=== PATIENT | male | born 1945 | race Caucasian/White ===

== ENCOUNTER → 2018-03-13 | Outpatient (CLI) | payer MEDICARE, OTHER ==
[2018-03-13 13:59] LABS: ALBUMIN 4.3 g/dL (3.5-5.0); CALCIUM 8.9 mg/dL (8.4-10.2); POTASSIUM 4.4 mmol/L (3.6-5.0); TOTAL BILIRUBIN 0.6 mg/dL (0.2-1.3); TOTAL PROTEIN 7.1 g/dL (6.3-8.2)
[2018-03-13 14:18] LABS: BASO # 0.1 (0.02-0.10); HEMATOCRIT 41.5 % (42.0-52.0); HEMOGLOBIN 14.1 g/dL (13.5-18.0); LYMPH# 1.4 (1.50-4.00); MEAN CELL VOLUME 99 fl (78-100); MEAN CORPUSCULAR HEMOGLOBIN 34 pg (27-31); MEAN CORPUSCULAR HGB CONC 34 g/dL (33-37); MEAN PLATELET VOLUME 9.6 fl (7.4-10.4); MONO # 1.1 (0.20-0.80); NEU # 7.2 (1.40-6.50); PLATELET COUNT 287 K/mm3 (130-400); RED CELL DISTRIBUTION WIDTH 12.5 % (11.5-14.5); WHITE BLOOD COUNT 10.5 K/mm3 (4.8-10.8)
[2018-03-13 14:23] LABS: EOS # 0.7 (0.04-0.40); EOS % 6.6 % (0.0-4.0)
== END ==
LOC: RAD 12:45
PROVIDERS: Family Medicine
DX: K57.30 Diverticulosis of large intestine without perforation or abscess without bleeding (principal); R18.8 Other ascites
CPT/HCPCS: Q9967

== ENCOUNTER → 2018-03-14 | Outpatient (CLI) | payer MEDICARE, OTHER | LOC: RAD 12:48 | DX: M79.661 Pain in right lower leg (principal); R22.41 Localized swelling, mass and lump, right lower limb ==

== ENCOUNTER → 2018-06-07 | Outpatient (CLI) | payer MEDICARE, OTHER | LOC: RAD 06:53 | DX: R10.11 Right upper quadrant pain (principal) ==

== ENCOUNTER → 2018-12-13 | Outpatient (CLI) | payer MEDICARE, OTHER ==
[2018-12-13 16:22] LABS: HEMATOCRIT 40.1 % (42.0-52.0); HEMOGLOBIN 13.5 g/dL (13.5-18.0); MEAN CELL VOLUME 96 fl (78-100); MEAN CORPUSCULAR HEMOGLOBIN 32 pg (27-31); MEAN CORPUSCULAR HGB CONC 34 g/dL (33-37); MEAN PLATELET VOLUME 8.2 fl (7.4-10.4); PLATELET COUNT 262 K/mm3 (130-400); RED BLOOD COUNT 4.19 M/mm3 (4.20-5.60); RED CELL DISTRIBUTION WIDTH 12.3 % (11.5-14.5); WHITE BLOOD COUNT 10.5 K/mm3 (4.8-10.8)
[2018-12-13 16:36] LABS: POTASSIUM 4.4 mmol/L (3.5-5.1)
[2018-12-13 16:37] LABS: CALCIUM 9.2 mg/dL (8.3-10.5)
[2018-12-13 16:59] LABS: LYMPHOCYTE 19 % (20-51); MONOCYTE 10 % (3-10); NEUTROPHILS 62 % (42-75)
== END ==
LOC: LAB 16:13
PROVIDERS: Nurse Practitioner Family
DX: J42 Unspecified chronic bronchitis (principal); R09.02 Hypoxemia

== ENCOUNTER 2019-11-12 15:32 | Emergency (ER) | payer MEDICARE, OTHER ==
[~2019-11-12] VITALS: Ht 172.7 cm; Wt 90.9 kg
[2019-11-12 16:05] LABS: HEMATOCRIT 43.9 % (42.0-52.0); HEMOGLOBIN 14.9 g/dL (13.5-18.0); MEAN CELL VOLUME 97 fl (78-100); MEAN CORPUSCULAR HEMOGLOBIN 33 pg (27-31); MEAN CORPUSCULAR HGB CONC 34 g/dL (33-37); MEAN PLATELET VOLUME 9.2 fl (7.4-10.4); PLATELET COUNT 270 K/mm3 (130-400); RED BLOOD COUNT 4.53 M/mm3 (4.20-5.60); RED CELL DISTRIBUTION WIDTH 12.8 % (11.5-14.5)
[2019-11-12 16:15] LABS: ALBUMIN 4.4 g/dL (3.4-4.8); POTASSIUM 4.5 mmol/L (3.5-5.1)
[2019-11-12 16:16] LABS: CALCIUM 9.2 mg/dL (8.3-10.5)
[2019-11-12 16:17] LABS: TOTAL PROTEIN 7.2 g/dL (6.2-8.1)
[2019-11-12 16:19] LABS: TOTAL BILIRUBIN 0.4 mg/dL (0.2-1.2)
[2019-11-12 16:21] LABS: LYMPHOCYTE 10 % (20-51); MONOCYTE 7 % (3-10); NEUTROPHILS 80 % (42-75)
[2019-11-12] MEDS ORDERED: PROAIR HFA0.09 MG/AC (17:03)
[2019-11-12] MEDS ORDERED: ATORVASTATIN CA40 MG PO (17:04)
[2019-11-12] MEDS ORDERED: IPRATROPIUM BROM3 M1 INH (17:04)
[2019-11-12] MEDS ORDERED: SYMBICORT1 AE2 INH (17:05)
[2019-11-12] MEDS ORDERED: VITAMIN D-40010 MCG PO (17:06)
[2019-11-12] MEDS ORDERED: TAGAMET HB200 M1 (17:17)
[2019-11-12] MEDS ORDERED: TAGAMET HB200 M1 PO (17:19)
[2019-11-12] MEDS ORDERED: DILTIAZEM 24HR240 MG PO (17:21)
[2019-11-12] MEDS ORDERED: PROSCAR PO (17:23)
[2019-11-12] MEDS ORDERED: COLACE100 M1 PO (17:23)
[2019-11-12] MEDS ORDERED: FLONASE ALLERG9.9 ML (17:25)
[2019-11-12] MEDS ORDERED: ROBITUSSIN10 ML/CU1 PO (17:26)
[2019-11-12] MEDS ORDERED: HCTZ 25MG25 MG PO (17:27)
[2019-11-12] MEDS ORDERED: LISINOPRIL40 MG PO (17:28)
[2019-11-12] MEDS ORDERED: PRILOSEC 20MG20 MG PO (17:29)
[2019-11-12] MEDS ORDERED: CENTRUM ADULTS1 EACH PO (17:29)
[2019-11-12] MEDS ORDERED: GLUCOPHAGE PO (17:29)
[2019-11-12] MEDS ORDERED: REQUIP0.25 M1 PO (17:30)
[2019-11-12] MEDS ORDERED: ONDANSETRON ODT8 MG PO (17:30)
[2019-11-12] MEDS ORDERED: TRAMADOL 50 MG TAB PO (17:31)
[2019-11-12] MEDS ORDERED: RT SPIRIVA INH18 MCG INH (17:31)
[2019-11-12 18:04] LABS: URINE APPEARANCE CLEAR; URINE BILIRUBIN NEGATIVE (NEGATIVE); URINE BLOOD NEGATIVE (NEGATIVE); URINE COLOR YELLOW; URINE GLUCOSE NEGATIVE (NEGATIVE); URINE KETONE NEGATIVE (NEGATIVE); URINE LEUKOCYTE ESTERASE NEGATIVE (NEGATIVE); URINE MUCUS PRESENT (NOT PRESENT); URINE NITRATE NEGATIVE (NEGATIVE); URINE PROTEIN(semi-quant) NEGATIVE (NEGATIVE); URINE UROBILINOGEN NORMAL (NORMAL); URINE WBC 0-1 /hpf (0-3)
[2019-11-12 19:35] VITALS: BP 162/102
== END 2019-11-12 18:56 | disposition short-term general hospital (02) ==
LOC: ED 15:32
PROVIDERS: Nurse Practitioner
DX: K56.2 Volvulus (principal); E11.9 Type 2 diabetes mellitus without complications; I10 Essential (primary) hypertension; F43.10 Post-traumatic stress disorder, unspecified; K21.9 Gastro-esophageal reflux disease without esophagitis; J44.9 Chronic obstructive pulmonary disease, unspecified; E78.5 Hyperlipidemia, unspecified; Z90.89 Acquired absence of other organs; Z79.51 Long term (current) use of inhaled steroids; Z79.84 Long term (current) use of oral hypoglycemic drugs
CPT/HCPCS: J2270; J2405; J3010; J7030; Q9967

== ENCOUNTER 2020-10-13 13:00 | Outpatient (RCR) | payer MEDICARE, OTHER ==
[~2020-10-13 13:00] MED LIST: ATORVASTATIN CA40 MG PO; CENTRUM ADULTS1 EACH PO; COLACE100 M1 PO; DILTIAZEM 24HR240 MG PO; FLONASE ALLERG9.9 ML; GLUCOPHAGE PO; HCTZ 25MG25 MG PO; IPRATROPIUM BROM3 M1 INH; LISINOPRIL40 MG PO; ONDANSETRON ODT8 MG PO; PRILOSEC 20MG20 MG PO; PROAIR HFA0.09 MG/AC; PROSCAR PO; REQUIP0.25 M1 PO; ROBITUSSIN10 ML/CU1 PO; RT SPIRIVA INH18 MCG INH; SYMBICORT1 AE2 INH; TAGAMET HB200 M1; TAGAMET HB200 M1 PO; TRAMADOL 50 MG TAB PO; VITAMIN D-40010 MCG PO
== END 2020-10-26 | disposition still patient (30) ==
LOC: PT
DX: R27.0 Ataxia, unspecified (principal)

== ENCOUNTER 2021-07-31 14:00 | Outpatient (RCR) | payer MEDICARE, OTHER ==
[2021-08-20] MEDS ORDERED: LIDOCAINE PAIN1 EACH TP (20:45)
[2021-08-20] MEDS ORDERED: KETOROLAC10 MG PO (20:45)
== END 2021-08-24 | disposition home or self-care (01) ==
LOC: PT
DX: R53.1 Weakness (principal)

== ENCOUNTER 2021-08-20 19:26 | Emergency (ER) | payer MEDICARE, OTHER ==
[2021-08-20] MEDS ORDERED: KETOROLAC10 MG PO (20:45)
[2021-08-20] MEDS ORDERED: LIDOCAINE PAIN1 EACH TP (20:45)
[2021-08-20 21:05] VITALS: BP 132/74
== END 2021-08-20 21:05 | disposition home or self-care (01) ==
LOC: ED 19:26
DX: K56.2 Volvulus (principal); J44.9 Chronic obstructive pulmonary disease, unspecified; M94.0 Chondrocostal junction syndrome [Tietze]; I25.10 Atherosclerotic heart disease of native coronary artery without angina pectoris; K21.9 Gastro-esophageal reflux disease without esophagitis; I12.9 Hypertensive chronic kidney disease with stage 1 through stage 4 chronic kidney disease, or unspecified chronic kidney disease; E11.22 Type 2 diabetes mellitus with diabetic chronic kidney disease; N18.30 Chronic kidney disease, stage 3 unspecified; Z79.899 Other long term (current) drug therapy; Z79.51 Long term (current) use of inhaled steroids; Z79.84 Long term (current) use of oral hypoglycemic drugs
CPT/HCPCS: J2270

== ENCOUNTER 2021-08-31 14:15 | Outpatient (RCR) | payer MEDICARE, OTHER ==
[~2021-08-31 14:15] MED LIST changes: +KETOROLAC10 MG PO; +LIDOCAINE PAIN1 EACH TP
== END 2021-09-24 | disposition home or self-care (01) ==
LOC: PT
DX: R53.1 Weakness (principal)

== ENCOUNTER 2021-09-30 11:20 | Outpatient (RCR) | payer MEDICARE, OTHER ==
[2021-10-22] MEDS ORDERED: PREDNISONE20 MG PO ×2 (23:25→23:55)
[2021-10-22] MEDS ORDERED: MORGIDOX 1X100100 MG PO ×2 (23:25→23:55)
[2021-10-22] MEDS ORDERED: PROMETH-CODEIN 65 ML PO ×2 (23:25→23:30)
== END 2021-10-24 | disposition home or self-care (01) ==
LOC: PT
DX: R53.1 Weakness (principal)

== ENCOUNTER 2021-10-22 22:25 | Emergency (ER) | payer MEDICARE, OTHER ==
[~2021-10-22] VITALS: Ht 177.8 cm; Wt 61.8 kg
[2021-10-22] MEDS ORDERED: PREDNISONE20 MG PO ×2 (23:25→23:55)
[2021-10-22] MEDS ORDERED: MORGIDOX 1X100100 MG PO ×2 (23:25→23:55)
[2021-10-22] MEDS ORDERED: PROMETH-CODEIN 65 ML PO ×2 (23:25→23:30)
[2021-10-23 00:45] VITALS: BP 139/96
== END 2021-10-23 00:45 | disposition home or self-care (01) ==
LOC: ED 22:25
DX: J44.9 Chronic obstructive pulmonary disease, unspecified (principal); M94.0 Chondrocostal junction syndrome [Tietze]
CPT/HCPCS: J0696; J2930

== ENCOUNTER → 2022-01-14 | Outpatient (CLI) | payer MEDICARE, OTHER ==
[~2022-01-14] VITALS: Ht 177.8 cm; Wt 61.8 kg
[~2022-01-14] MED LIST changes: +MORGIDOX 1X100100 MG PO; +PREDNISONE20 MG PO; +PROMETH-CODEIN 65 ML PO
[2022-01-14 09:42] VITALS: BP 121/84
== END ==
LOC: AMSURD 09:18 → RAD 11:00
DX: I95.9 Hypotension, unspecified (principal); E87.1 Hypo-osmolality and hyponatremia
CPT/HCPCS: J7030; Q9967

== ENCOUNTER 2022-04-27 08:00 | Outpatient (RCR) | payer MEDICARE, OTHER ==
[~2022-04-27 08:00] MED LIST changes: +ELIQUIS5 MG PO; +LISINOPRIL10 MG PO; +ROXICODONE 55 MG/TAB PO; +TRELEGY ELLIPT1 EACH IH
== END 2022-05-26 | disposition home or self-care (01) ==
LOC: PT
DX: A41.9 Sepsis, unspecified organism (principal); K56.609 Unspecified intestinal obstruction, unspecified as to partial versus complete obstruction; N17.9 Acute kidney failure, unspecified; Z98.890 Other specified postprocedural states

== ENCOUNTER 2022-06-29 08:00 | Outpatient (RCR) | payer MEDICARE, OTHER | END 2022-07-27 | disposition home or self-care (01) | LOC: PT | DX: K56.699 Other intestinal obstruction unspecified as to partial versus complete obstruction (principal); A41.9 Sepsis, unspecified organism; N17.9 Acute kidney failure, unspecified ==

== ENCOUNTER 2022-08-25 07:54 | Outpatient (RCR) | payer MEDICARE, OTHER | END 2022-09-24 | disposition home or self-care (01) | LOC: PT | DX: K56.609 Unspecified intestinal obstruction, unspecified as to partial versus complete obstruction (principal); Z98.890 Other specified postprocedural states ==

== ENCOUNTER 2023-01-31 13:39 | Outpatient (RCR) | payer MEDICARE, OTHER | END 2023-02-24 | disposition home or self-care (01) | LOC: PT | DX: R53.1 Weakness (principal); J18.9 Pneumonia, unspecified organism ==

== ENCOUNTER 2023-06-01 14:00 | Outpatient (RCR) | payer MEDICARE, OTHER | END 2023-06-26 | disposition home or self-care (01) | LOC: PT | DX: M51.36 Other intervertebral disc degeneration, lumbar region (principal); M25.511 Pain in right shoulder ==

== ENCOUNTER 2024-02-29 09:30 | Outpatient (RCR) | payer MEDICARE, OTHER | END 2024-03-26 | disposition home or self-care (01) | LOC: PT | DX: R53.81 Other malaise (principal) ==

== ENCOUNTER 2024-03-30 12:55 | Outpatient (RCR) | payer MEDICARE, OTHER | END 2024-04-26 | disposition home or self-care (01) | LOC: PT | DX: R53.81 Other malaise (principal) ==

== ENCOUNTER 2024-04-27 08:00 | Outpatient (RCR) | payer MEDICARE, OTHER | END 2024-05-26 | LOC: PT | DX: R53.81 Other malaise (principal) ==

== ENCOUNTER → 2024-06-13 | Outpatient (CLI) | payer MEDICARE, OTHER | LOC: RAD 07:48 | DX: R10.31 Right lower quadrant pain (principal) ==

== ENCOUNTER → 2024-07-19 | Outpatient (CLI) | payer MEDICARE, OTHER | LOC: RAD 13:46 | DX: R05.1 Acute cough (principal); R41.82 Altered mental status, unspecified ==

== ENCOUNTER → 2024-09-06 | Outpatient (CLI) | payer MEDICARE, OTHER | LOC: RAD 15:58 → LAB 15:58 | DX: R06.00 Dyspnea, unspecified (principal) ==

== ENCOUNTER → 2024-09-14 | Outpatient (CLI) | payer MEDICARE, OTHER ==
[2024-09-14 16:34] LABS: HEMATOCRIT 40.2 % (42.0-52.0); HEMOGLOBIN 12.6 g/dL (13.5-18.0); MEAN CELL VOLUME 105 fl (78-100); MEAN CORPUSCULAR HEMOGLOBIN 33 pg (27-31); MEAN CORPUSCULAR HGB CONC 31 g/dL (33-37); MEAN PLATELET VOLUME 9.5 fl (7.4-10.4); PLATELET COUNT 173 K/mm3 (130-400); RED BLOOD COUNT 3.82 M/mm3 (4.20-5.60); RED CELL DISTRIBUTION WIDTH 14.5 % (11.5-14.5); WHITE BLOOD COUNT 19.7 K/mm3 (4.8-10.8)
[2024-09-14 16:40] LABS: ALBUMIN 3.7 g/dL (3.4-4.8)
[2024-09-14 16:42] LABS: TOTAL PROTEIN 6.3 g/dL (6.2-8.1)
[2024-09-14 16:44] LABS: TOTAL BILIRUBIN 0.3 mg/dL (0.2-1.2)
[2024-09-14 16:49] LABS: BAND 6 % (0-10); LYMPHOCYTE 2 % (20-51); MONOCYTE 4 % (3-10); NEUTROPHILS 88 % (42-75)
== END ==
LOC: LAB 16:08
PROVIDERS: Family Medicine
DX: D72.829 Elevated white blood cell count, unspecified (principal)